=== PATIENT | female | born 1950 | race Caucasian/White ===

== ENCOUNTER → 2017-01-14 | Outpatient (CLI) | payer OTHER, MEDICARE ==
[2015-02-28 17:22] VITALS: BP 132/74
[2017-01-14 09:30] LABS: BASOPHILS % (AUTO) 0.9 % (0.2-1.0); EOSINOPHILS # (AUTO) 0.2 x10^3/uL (0.0-0.2); EOSINOPHILS % (AUTO) 4.6 % (0.9-2.9); HEMATOCRIT 35.1 % (36.0-47.0); HEMOGLOBIN 11.8 g/dL (12.0-16.0); LYMPHOCYTES % (AUTO) 39.1 % (21.0-51.0); MEAN CORPUSCULAR HEMOGLOBIN 29.9 pg (27.0-34.0); MEAN CORPUSCULAR HGB CONC 33.5 g/dL (33.0-35.0); MEAN CORPUSCULAR VOLUME 89.3 fL (80.0-100.0); MEAN PLATELET VOLUME 7.6 fL (7.4-11.0); MONOCYTES # (AUTO) 0.3 x10^3/uL (0.3-0.8); MONOCYTES % (AUTO) 6.8 % (0.0-13.0); NEUTROPHILS # (AUTO) 2.4 x10^3/uL (2.2-4.8); NEUTROPHILS % (AUTO) 48.6 % (42.0-75.0); PLATELET COUNT 177 X10^3/uL (150.0-450.0); RED BLOOD COUNT 3.93 X10^6/uL (3.5-5.4); RED CELL DISTRIBUTION WIDTH 16.2 % (11.6-16.5)
[2017-01-14 09:41] LABS: ALANINE AMINOTRANSFERASE 16 Units/L (12-78); ALBUMIN 2.8 g/dL (3.4-5.0); ALKALINE PHOSPHATASE 91 Units/L (46-116); ASPARTATE AMINO TRANSFERASE 15 Units/L (15-37); BILIRUBIN,DIRECT 0.08 mg/dL (0-0.2); BLOOD UREA NITROGEN 15 mg/dL (7-18); CALCIUM 8.2 mg/dL (8.5-10.1); CARBON DIOXIDE 31.5 mmol/L (21-32); CHLORIDE 105 mmol/L (98-107); CHOL/HDL RATIO 2.7 (0.0-5.0); CHOLESTEROL 199 mg/dL (0-200); COR NA(FOR HYPERGLY) 142 mmol/L (136-145); GLUCOSE 118 mg/dL (65-99); HDL CHOLESTEROL 75 mg/dL (40-60); SODIUM 142 mmol/L (136-145); TOTAL PROTEIN 6.7 g/dL (6.4-8.2); TRIGLYCERIDES 122 mg/dL (0-150); eGFR BLACK RACES > 60 (>60); eGFR NON BLACK RACES > 60 (>60)
== END ==
LOC: LAB 08:39
PROVIDERS: ATTEND Physician Assistant
DX: R94.39 Abnormal result of other cardiovascular function study (principal); E78.4 Other hyperlipidemia
CPT/HCPCS: 36415; 80048; 80061; 80076; 85025

== ENCOUNTER → 2017-10-30 | Outpatient (CLI) | payer OTHER, MEDICARE ==
[2015-02-28 17:22] VITALS: BP 132/74
[~2017-10-30] MED LIST: LEXISCAN IV ONE
== END ==
LOC: RAD 09:23
PROVIDERS: ATTEND Internal Medicine Cardiovascular Disease
DX: R07.9 Chest pain, unspecified (principal)
CPT/HCPCS: 78452; 93017; A4222; A9502; J2785

== ENCOUNTER 2018-01-29 10:40 | Observation (INO) ==
[2018-01-29 11:05] VITALS: BMI 37.2
[2018-01-29 11:20] LABS: BILIRUBIN,URINE NEGATIVE (NEGATIVE); BLOOD/HEMOGLOBIN,URINE 1+ (NEGATIVE); GLUCOSE, URINE NEGATIVE (NEGATIVE); KETONES,URINE NEGATIVE (NEGATIVE); LEUKOCYTE ESTERASE ,URINE NEGATIVE (NEGATIVE); NITRITES,URINE NEGATIVE (NEGATIVE); PH,URINE 6.5 (5.0 - 8.0); PROTEIN,URINE NEGATIVE (NEGATIVE); UROBILINOGEN,URINE NORMAL (NORMAL)
--- NOTE | 2018-01-29 11:21 | CT ---
HISTORY: Altered mental status Study: CT brain without contrast Comparison: June 15, 2011 Technique: Multiple axial images of the brain were obtained from the skull base to the vertex without administra tion of IV contrast. Findings: No acute intraparenchymal hemorrhage or mass can be identified. No extra-axial fluid collections are seen. No alteration in the attenuation of the brain parenchyma can be identified to suggest acute o r subacute ischemic change. The ventricular system is symmetric and nondilated. Patchy areas of decr eased attenuation within the periventricular, subcortical, and subinsular white matter suggest change s of chronic small vessel ischemic disease. Images demonstrate partial opacification and mucosal thi ckening of the ethmoid air cells. Moderate mucosal thickening involving the bilateral maxillary sinus es is also demonstrated. If symptoms or clinical concern persist recommend continued follow-up for fu rther evaluation. IMPRESSION: No acute intracranial process can be identified. Findings consistent with changes of chronic small vessel ischemic disease. Ethmoid and maxillary sinus disease as noted above. Reported By:
[2018-01-29 11:37] LABS: AMORPHOUS SEDIMENT,UR TRACE /HPF (NEGATIVE); APPEARANCE,URINE CLEAR (CLEAR); BACTERIA,URINE 1+ /HPF (NEGATIVE); COLOR,URINE YELLOW (YELLOW); RBC,URINE 0-2 /HPF (NONE SEEN); SQUAMOUS EPITHELIAL CELL,UR FEW /HPF (NEGATIVE)
[2018-01-29 11:48] LABS: BASOPHILS % (AUTO) 0.6 % (0.2-1.0); EOSINOPHILS # (AUTO) 0.6 x10^3/uL (0.0-0.2); HEMATOCRIT 38.9 % (36.0-47.0); HEMOGLOBIN 13.1 g/dL (12.0-16.0); LYMPHOCYTES # (AUTO) 2.1 X10^3/uL (1.3-2.9); MEAN CORPUSCULAR HEMOGLOBIN 29.7 pg (27.0-34.0); MEAN CORPUSCULAR HGB CONC 33.8 g/dL (33.0-35.0); MEAN CORPUSCULAR VOLUME 87.9 fL (80.0-100.0); MEAN PLATELET VOLUME 7.6 fL (7.4-11.0); MONOCYTES # (AUTO) 0.6 x10^3/uL (0.3-0.8); MONOCYTES % (AUTO) 9.5 % (0.0-13.0); NEUTROPHILS # (AUTO) 2.8 x10^3/uL (2.2-4.8); NEUTROPHILS % (AUTO) 45.9 % (42.0-75.0); PLATELET COUNT 212 X10^3/uL (150.0-450.0); RED BLOOD COUNT 4.43 X10^6/uL (3.5-5.4); RED CELL DISTRIBUTION WIDTH 16.2 % (11.6-16.5); WHITE BLOOD COUNT 6.1 X10^3/uL (3.6-10.0)
[2018-01-29 12:02] LABS: BLOOD UREA NITROGEN 13 mg/dL (7-18); CALCIUM 8.5 mg/dL (8.5-10.1); CARBON DIOXIDE 27.3 mmol/L (21-32); CHLORIDE 103 mmol/L (98-107); SODIUM 138 mmol/L (136-145); TROPONIN I < 0.02 ng/mL (0-1.5); eGFR NON BLACK RACES 58 (>60)
[2018-01-29 12:08] LABS: ALANINE AMINOTRANSFERASE 16 Units/L (12-78); ALBUMIN 3.2 g/dL (3.4-5.0); ALKALINE PHOSPHATASE 107 Units/L (46-116); ASPARTATE AMINO TRANSFERASE 17 Units/L (15-37); CHOL/HDL RATIO 3.3 (0.0-5.0); CHOLESTEROL 229 mg/dL (0-200); CKMB % 1.4 % (<4); COR CA(FOR HYPOALB) 9.1 mg/dL (8.5-10.1); CREATINE KINASE 73 Units/L (26-192); CREATINE KINASE MB < 1.0 ng/mL (0-4.0); HDL CHOLESTEROL 69 mg/dL (40-60); TOTAL PROTEIN 7.5 g/dL (6.4-8.2); TRIGLYCERIDES 115 mg/dL (0-150)
[2018-01-29] MEDS ORDERED: ASPIRIN 81 MG CHEWTAB ONE (12:09)
[2018-01-29] MEDS ORDERED: ASPIRIN EC 81 MG PO ONE (12:13)
--- NOTE | 2018-01-29 12:48 | DR.WEAKNES ---
HPI Time Seen Time seen: 10:55 Primary Care Physician Primary Care Physician: MARCO A Complaints Chief Complaint:: PT COMPLAINS OF BEING DISORIENTATED.HAD TROUBLE STATING HER WORDS AND SAYING THE WRONG WORDS. HAD HAD DIFFICULTY STATING FAMILY NAMES. HEADACHE FOR FEW DAYS TO THE BACK OF THE HEAD WITH NAUSEA LAST NIGHT AND TODAY WHICH SHE DOES NOT FEEL IS SIGNIFICANT Self Treatment fo Chief Complaint: CAME TO THE ER AFTER CALLING MD OFFICE Reviewed Nurses Notes Reviewed: Yes Source History Provided: Patient and Family Member Mode of Arrival Mode of Arrival: Ambulatory Timing Onset of Chief Complaint: 01/29/18 Symptom Onset: Known Onset of Symptoms Start Date: 01/29/18 Onset of Symptoms Start Time: 09:30 Context Stroke Symptoms: Acute confusion PMH PMH Past Medical History: Yes Past Medical History: Arthritis, Coronary Artery Disease, Diabetes, Dyslipidemia , GERD, Hypertension, Hypothyroidism and PUD Past Medical History Comment: HIATAL HERNIA Past Surgical History: Yes Surgical History: Angioplasty/Stents, Cholecystectomy, Ortho Surgery and Tonsillectomy Past Surgical History Comment: BILATERAL KNEES, STENTS TO HEART Family History History of Family Medical Conditions: Yes Family Medical History: Diabetes Mellitus, [place], Coronary Artery Disease, Heart Failure, Sudden Cardiac and Hypertension Social History Does any household member use tobacco: No Alcohol Use: None Do you use any recreational Drugs:: No Lives With: Family Lives Where: Home infectious screening In the last 2 months have you had wt loss of >10#?: NO Have you had fever, night sweats or hemotysis?: No Have you traveled outside the country in the last 6 months?: No Isolation: Standard ROS Review of Systems Constitutional: No Symptoms Reported Eyes: No Symptoms Reported ENTM: No Symptoms Reported Respiratoy: No Symptoms Reported Cardiovascular: No Symptoms Reported Gastrointestinal/Abdominal: Nausea Genitourinary: No Symptoms Reported Neurological: Speech Problem and Other (Disorientation) Musculoskeletal: No Symptoms Reported Integumentary: No Symptoms Reported Hematologic/Lymphatic: No Symptoms Reported Endocrine: No Symptoms Reported Psychiatric: No Symptoms Reported All Other Systems: Reviewed and Negative PE Vital Signs Vitals: Temperature 98.0 F Pulse Rate [Left] 48 Pulse Rate 55 Respiratory Rate 20 Blood Pressure [Left Arm] 176/81 Blood Pressure 181/82 O2 Sat by Pulse Oximetry 20 General Limitations: No Limitations General Appearance: Alert and In No Apparent Distress Head Head Exam: Normal Inspection Eyes Eye exam: Normal Appearance Eyelids: Normal Inspection: Bilateral Pupils: Regular, Round: Bilateral ENT ENT Exam: Normal Exam Neck Neck Exam: Normal Inspection, Full ROM and Trachea Midline Chest Chest Inspection: Normal Inspection and Symmetric Chest Wall Rise Respiratory Respiratory Exam: Normal Lung Sounds Bilat Cardiovascular Cardiovascular Exam: Regular Rate, Normal Rhythm, +S1 and +S2 Extremities Extremities Exam: Normal Inspection Back Back Exam: Normal Inspection Neurologic Neurological Exam: Alert, Oriented X3 and CN II-XII Intact Speech: Fluid Speech Psychiatric Psychiatric Exam: Normal Affect and Normal Mood Skin Skin Exam: Warm and Normal Color ROR Labs Reviewed Result Diagrams: 01/29/18 11:20 01/29/18 11:20 Laboratory: WBC 6.1 X10^3/uL (3.6-10.0) 01/29/18 11:20 RBC 4.43 X10^6/uL (3.5-5.4) 01/29/18 11:20 Hgb 13.1 g/dL (12.0-16.0) 01/29/18 11:20 Hct 38.9 % (36.0-47.0) 01/29/18 11:20 MCV 87.9 fL (80.0-100.0) 01/29/18 11:20 MCH 29.7 pg (27.0-34.0) 01/29/18 11:20 MCHC 33.8 g/dL (33.0-35.0) 01/29/18 11:20 RDW 16.2 % (11.6-16.5) 01/29/18 11:20 Plt Count 212 X10^3/uL (150.0-450.0) 01/29/18 11:20 MPV 7.6 fL (7.4-11.0) 01/29/18 11:20 Neut % (Auto) 45.9 % (42.0-75.0) 01/29/18 11:20 Lymph % (Auto) 34.0 % (21.0-51.0) 01/29/18 11:20 [place] % (Auto) 9.5 % (0.0-13.0) 01/29/18 11:20 Eos % (Auto) 10.0 % (0.9-2.9) H 01/29/18 11:20 Baso % (Auto) 0.6 % (0.2-1.0) 01/29/18 11:20 Neut # (Auto) 2.8 x10^3/uL (2.2-4.8) 01/29/18 11:20 Lymph # (Auto) 2.1 X10^3/uL (1.3-2.9) 01/29/18 11:20 [place] # (Auto) 0.6 x10^3/uL (0.3-0.8) 01/29/18 11:20 Eos # (Auto) 0.6 x10^3/uL (0.0-0.2) H 01/29/18 11:20 Baso # (Auto) 0.0 X10^3/uL (0.0-0.1) 01/29/18 11:20 Absolute Nucleated RBC 0.1 /100WBC 01/29/18 11:20 INR Target Range - 01/29/18 11:20 INR 0.94 (0.8-1.3) 01/29/18 11:20 APTT 31.8 SECONDS (22.9-36.5) 01/29/18 11:20 PTT Comment - 01/29/18 11:20 Fibrinogen 368 mg/dL (239-489) 01/29/18 11:20 Sodium 138 mmol/L (136-145) 01/29/18 11:20 Corrected Sodium TNP 01/29/18 11:20 Potassium 3.8 mmol/L (3.5-5.1) 01/29/18 11:20 Chloride 103 mmol/L (98-107) 01/29/18 11:20 Carbon Dioxide 27.3 mmol/L (21-32) 01/29/18 11:20 BUN 13 mg/dL (7-18) 01/29/18 11:20 Creatinine 1.00 mg/dL (0.55-1.02) 01/29/18 11:20 Est GFR (MDRD) Af Amer > 60 (>60) 01/29/18 11:20 Est GFR (MDRD) Non-Af 58 (>60) L 01/29/18 11:20 Glucose 93 mg/dL (65-99) 01/29/18 11:20 Calcium 8.5 mg/dL (8.5-10.1) 01/29/18 11:20 Corrected Calcium 9.1 mg/dL (8.5-10.1) 01/29/18 11:20 Total Bilirubin 0.40 mg/dL (0.2-1.0) 01/29/18 11:20 AST 17 Units/L (15-37) 01/29/18 11:20 ALT 16 Units/L (12-78) 01/29/18 11:20 Alkaline Phosphatase 107 Units/L (46-116) 01/29/18 11:20 Creatine Kinase 73 Units/L (26-192) 01/29/18 11:20 CK-MB (CK-2) < 1.0 ng/mL (0-4.0) 01/29/18 11:20 CK/CKMB % Calc 1.4 % (<4) 01/29/18 11:20 Troponin I < 0.02 ng/mL (0-1.5) 01/29/18 11:20 Total Protein 7.5 g/dL (6.4-8.2) 01/29/18 11:20 Albumin 3.2 g/dL (3.4-5.0) L 01/29/18 11:20 Globulin 4.3 g/dL (2.5-4.5) 01/29/18 11:20 Albumin/Globulin Ratio 0.7 Ratio (1.1-2.1) L 01/29/18 11:20 Triglycerides 115 mg/dL (0-150) 01/29/18 11:20 Cholesterol 229 mg/dL (0-200) H 01/29/18 11:20 LDL Cholesterol, Calc 137 mg/dL (0-100) H 01/29/18 11:20 HDL Cholesterol 69 mg/dL (40-60) H 01/29/18 11:20 Cholesterol/HDL Ratio 3.3 (0.0-5.0) 01/29/18 11:20 Specimen Type Clean catch urine 01/29/18 11:14 Urine Color Yellow (YELLOW) 01/29/18 11:14 Urine Appearance Clear (CLEAR) 01/29/18 11:14 Urine pH 6.5 (5.0 - 8.0) 01/29/18 11:14 Ur Specific [place] 1.005 (1.000-1.030) 01/29/18 11:14 Urine Protein Negative (NEGATIVE) 01/29/18 11:14 Urine Glucose (UA) Negative (NEGATIVE) 01/29/18 11:14 Urine Ketones Negative (NEGATIVE) 01/29/18 11:14 Urine Occult Blood 1+ (NEGATIVE) 01/29/18 11:14 Urine Nitrite Negative (NEGATIVE) 01/29/18 11:14 Urine Bilirubin Negative (NEGATIVE) 01/29/18 11:14 Urine Urobilinogen Normal (NORMAL) 01/29/18 11:14 Ur Leukocyte Esterase Negative (NEGATIVE) 01/29/18 11:14 Urine RBC 0-2 /HPF (NONE SEEN) 01/29/18 11:14 Urine WBC 0-2 /HPF (NONE SEEN) 01/29/18 11:14 Ur Squamous Epith Cells Few /HPF (NEGATIVE) 01/29/18 11:14 Amorphous Sediment Trace /HPF (NEGATIVE) 01/29/18 11:14 Urine Bacteria 1+ /HPF (NEGATIVE) 01/29/18 11:14 Ur Culture Indicated? Yes/culture set up 01/29/18 11:14 XRAY XRAY Interpreted by: Radiologist XRAY Findings: Brain CT: No acute intracranial findings. chronic small vessel ischemic niko EKG Rate: 56 [place]: LAD Rhythm: Junctional Block: None Diagnosis Discharge Problem: Brain TIA
[2018-01-29] MEDS ORDERED: APRESOLINE TAB 25 MG PO ONE (13:06)
[2018-01-29] MEDS ORDERED: NITROSTAT SL PRN (14:45)
[2018-01-29] MEDS ORDERED: NORCO 7.5/325 MG TAB PO PRN (14:45)
[2018-01-29] MEDS ORDERED: PREVNAR 13 IM ONE (17:24)
[2018-01-29] MEDS: PriLOSEC PO SCH (20:28)
[2018-01-29] MEDS ORDERED: SINGULAIR TAB 10 MG PO SCH (21:00)
--- NOTE | 2018-01-29 22:07 | MRI ---
HISTORY: Confusion with difficulty talking Study: MRI brain with and without contrast Comparison: None available Technique: Multiplanar multi-sequence MRI of the brain was obtained. Sagittal T1, axial T1, axial T2 , axial flair images, coronal T1, sagittal T1 post contrast, coronal T1 postcontrast, axial T1 postco ntrast images were obtained. Findings: Mild generalized cerebral atrophy. There is also mild bilateral periventricular and subcortical FLAIR signal hyperintensities which are nonspecific however likely represent sequela of chronic microvascu lar ischemic disease. The midline structures appear intact. The posterior fossa is unremarkable. The sulcal markings of t he brain are normal in their appearance. Normal hamilton-white differentiation is maintained. No eviden ce for intraparenchymal hemorrhage or mass can be identified. No extra-axial fluid collections or juarez barachnoid hematoma can be seen. Evaluation of the diffusion weighted images demonstrates no evidenc e for acute ischemic change. The cerebral pontine angle is normal in its contour without evidence fo r mass. The ventricular system appears symmetric and nondilated. There is moderate mucosal thickening enhanced noted within bilateral ethmoid and maxillary sinuses. Postcontrast enhancement demonstrates no evidence for an enhancing lesion such as mass or vascular ma lformation. IMPRESSION: 1. No acute intracranial abnormality, generalized cerebral atrophy with bilateral periventricular an d subcortical FLAIR signal hyperintensity is most consistent with sequela of chronic microvascular is chemic disease. 2. Moderate bilateral ethmoid and maxillary sinus mucosal disease. Reported By:
--- NOTE | 2018-01-29 22:10 | MRI ---
MRA neck without contrast. Indication: Confusion and difficulty talking. Technique: 3D [id number] imaging of the neck arterials circulation without IV contrast administra tion. Ms. imaging was also provided. Findings: There is normal opacification the anterior posterior neck arterial circulation. No stenosis aneurysmal dilatation identified within the neck or intracranial arterials circulation. Impression: Normal angiogram of the neck arterial circulation. Reported By:
[2018-01-30] MEDS ORDERED: TYLENOL 325 MG TAB PO PRN (00:05)
[2018-01-30 06:26] LABS: BASOPHILS # (AUTO) 0.1 X10^3/uL (0.0-0.1); BASOPHILS % (AUTO) 1.4 % (0.2-1.0); EOSINOPHILS # (AUTO) 0.4 x10^3/uL (0.0-0.2); EOSINOPHILS % (AUTO) 8.9 % (0.9-2.9); HEMATOCRIT 36.7 % (36.0-47.0); HEMOGLOBIN 12.4 g/dL (12.0-16.0); LYMPHOCYTES # (AUTO) 1.8 X10^3/uL (1.3-2.9); LYMPHOCYTES % (AUTO) 37.4 % (21.0-51.0); MEAN CORPUSCULAR HEMOGLOBIN 29.6 pg (27.0-34.0); MEAN CORPUSCULAR HGB CONC 33.7 g/dL (33.0-35.0); MEAN CORPUSCULAR VOLUME 87.9 fL (80.0-100.0); MEAN PLATELET VOLUME 7.6 fL (7.4-11.0); MONOCYTES # (AUTO) 0.4 x10^3/uL (0.3-0.8); MONOCYTES % (AUTO) 7.8 % (0.0-13.0); NEUTROPHILS # (AUTO) 2.2 x10^3/uL (2.2-4.8); NEUTROPHILS % (AUTO) 44.5 % (42.0-75.0); PLATELET COUNT 188 X10^3/uL (150.0-450.0); RED BLOOD COUNT 4.17 X10^6/uL (3.5-5.4); RED CELL DISTRIBUTION WIDTH 16.2 % (11.6-16.5); WHITE BLOOD COUNT 4.9 X10^3/uL (3.6-10.0)
[2018-01-30 06:45] LABS: ALANINE AMINOTRANSFERASE 16 Units/L (12-78); ALBUMIN 2.8 g/dL (3.4-5.0); ALKALINE PHOSPHATASE 94 Units/L (46-116); ASPARTATE AMINO TRANSFERASE 19 Units/L (15-37); BLOOD UREA NITROGEN 12 mg/dL (7-18); CALCIUM 8.5 mg/dL (8.5-10.1); CARBON DIOXIDE 27.1 mmol/L (21-32); CHLORIDE 105 mmol/L (98-107); COR CA(FOR HYPOALB) 9.5 mg/dL (8.5-10.1); COR NA(FOR HYPERGLY) 140 mmol/L (136-145); CREATININE 0.99 mg/dL (0.55-1.02); SODIUM 140 mmol/L (136-145); TOTAL PROTEIN 6.7 g/dL (6.4-8.2); eGFR NON BLACK RACES 59 (>60)
[2018-01-30] MEDS ORDERED: LEXAPRO ONE (07:55)
[2018-01-30] MEDS: PriLOSEC PO SCH (08:03)
[2018-01-30] MEDS ORDERED: TENORMIN PO SCH (09:00)
[2018-01-30] MEDS ORDERED: ASPIRIN EC 81 MG PO SCH (09:00)
[2018-01-30] MEDS ORDERED: NEURONTIN CAP 300 MG PO SCH (09:00)
[2018-01-30] MEDS ORDERED: ZESTRIL TAB 5 MG PO SCH (09:00)
[2018-01-30] MEDS ORDERED: LEXAPRO PO SCH (09:00)
[2018-01-30] MEDS ORDERED: LIPITOR TAB 40 MG PO SCH (09:00)
[2018-01-30] MEDS ORDERED: SYNTHROID 75 mcg TAB PO SCH (09:00)
[2018-01-30] MEDS ORDERED: ZyrTEC TAB 10 MG PO SCH (09:00)
[2018-01-30] MEDS ORDERED: CALAN SR 240 MG PO ONE ×2 (10:31→10:34)
[2018-01-30 11:02] VITALS: BP 149/69
[2018-01-30] MEDS ORDERED: ASPIRIN 81 MG CHEWTAB PO ONE (11:35)
--- NOTE | 2018-03-15 18:06 | DR.CARTERS ---
Short Stay Summary - Short Stay Summary for: Short Stay Summary for Date of:: 01/30/18 - Admission Date Date of Admission: 01/29/18 - Discharge Date Discharge Date: 01/30/18 - Admission Diagnoses (1) Brain TIA Status: Acute (2) Altered mental status Status: Acute (3) Headache Status: Acute - Hospital Course Hospital Course: Day one, patient presented to the [facility] with complaints of stroke like symptoms. Pt complained of being disorientated. She had trouble stating her words and saying the wrong words. She had difficulty stating family names. Headache for few days to the back of the head with nausea for the prior 24 hours which she did not feel was significant. EKG: Junctional Rhythm, HR= 56. An MRI of the brain was performed and revealed: No acute intracranial abnormality, generalized cerebral atrophy with bilateral periventricular and subcortical FLAIR signal hyper-intensity was most consistent with sequela of chronic microvascular ischemic disease. Moderate bilateral ethmoid and maxillary sinus mucosal disease. An MRA of the neck was performed and revealed: Normal angiogram of the neck arterial circulation. Patient was admitted to the hospital for further evaluation of TIA R/O CVA. We continued to monitor. Day two , patient reported she felt better. She denied headache. Speech was clear and appropriate. Vital signs stable. Labs wnl. We planned for discharge. Instructions for medications and follow up were discussed with patient and family, both voiced understanding. Patient discharged home in stable condition with family. - Discharge Medications Discharge Medications: Home Medication List atenolol 50 mg PO DAILY 01/29/18 [History] cetirizine [Zyrtec] 10 mg PO DAILY 01/29/18 [History] escitalopram oxalate 10 mg PO DAILY 01/29/18 [History] gabapentin 300 mg PO DAILY 01/29/18 [History] hydrocodone-acetaminophen 7.5 - 325 mg PO TID PRN 01/29/18 [History] levothyroxine 75 mcg PO DAILY 01/29/18 [History] lisinopril 2.5 mg PO DAILY 01/29/18 [History] montelukast 10 mg PO HS 01/29/18 [History] nitroglycerin 0.4 mg SUBLINGUAL PRN PRN 01/29/18 [History] omeprazole 20 mg PO BID 01/29/18 [History] verapamil 240 mg PO HS 01/29/18 [History] aspirin [Ecotrin] 325 mg PO DAILY #30 tab 01/30/18 [Rx] clopidogrel [Plavix] 75 mg PO DAILY #3 tab 01/30/18 [Rx] rosuvastatin 40 mg PO HS #3 tab 01/30/18 [Rx] Prescriptions: aspirin [Ecotrin] Pablo Taylor clopidogrel [Plavix] Pablo Taylor rosuvastatin Pablo Taylor - Discharge Plan Disposition: 01 HOME, SELF-CARE Condition: Stable Prescriptions: aspirin [Ecotrin] 325 mg PO DAILY #30 tab clopidogrel [Plavix] 75 mg PO DAILY #3 tab rosuvastatin 40 mg PO HS #3 tab - Follow up/Referrals Follow up/Referrals: Pablo Taylor [Primary Care Provider] - 02/05/18 2:20 pm - Instructions Instructions: Arthritis, [id number], Transient Ischemic Attack, [id number] , Hypertension, [id number] Additional Instructions: DIET TOLERATED. ACTIVITY TOLERATED. Forms: Patient Portal
== END 2018-01-30 11:55 | disposition home or self-care (01) ==
LOC: ICU 10:44 → ER 10:44 → ICU 16:27
PROVIDERS: ADMIT Internal Medicine; ATTEND Internal Medicine
DX: R51 Headache; I10 Essential (primary) hypertension; Z79.899 Other long term (current) drug therapy; Z23 Encounter for immunization; Z79.01 Long term (current) use of anticoagulants; R94.31 Abnormal electrocardiogram [ECG] [EKG]; K21.9 Gastro-esophageal reflux disease without esophagitis; E03.8 Other specified hypothyroidism; G45.8 Other transient cerebral ischemic attacks and related syndromes; E78.2 Mixed hyperlipidemia; I25.10 Atherosclerotic heart disease of native coronary artery without angina pectoris; R41.82 Altered mental status, unspecified
CPT/HCPCS: 36415; 70450; 70547; 70553; 80053; 80061; 81001; 82550; 82553; 84484; 85025; 85384; 85610; 85730; 87086; 93005; 96365; 99284; A4216; A4222; 90670; G0378; J3490